=== PATIENT | male | born 1960 | race Caucasian/White ===

== ENCOUNTER → 2021-12-09 | Outpatient (CLI) | payer BC, SELFPAY ==
--- NOTE | 2021-12-09 15:34 | NEURO ---
NCS and/or EMG Patient Report Ordering Doctor: Anjana Queen DATE OF SERVICE: 12/09/21 Indication: Right hand numbness, pain and weakness. Evaluate for entrapment neuropathy. Findings: Nerve conduction studies were performed in the right upper extremity. The right median motor study recording the abductor pollicis brevis showed a normal amplitude, prolonged distal latency and borderline conduction velocity. The right ulnar motor study recording the abductor digiti minimi showed a normal amplitude, normal distal latency and normal conduction velocity. Borderline slowing was present across the elbow. The right ulnar motor study recording the first dorsal interosseous showed a normal amplitude, normal distal latency and normal conduction velocity. Significant focal slowing was present across the elbow. The right median sensory response recording digit two showed a reduced amplitude, prolonged latency and slowed conduction velocity. The right ulnar sensory response recording digit five showed a reduced amplitude, normal latency and normal conduction velocity. The right radial sensory response recording over the extensor snuff box showed a normal amplitude, latency and conduction velocity. Needle EMG of the right upper extremity and cervical paraspinal muscles was performed. No denervation was seen in any muscle. The triceps, first dorsal interosseous and abductor pollicis brevis muscles were large amplitude and long duration with polyphasia. All other motor unit morphology, activation and recruitment patterns were normal. This is an abnormal and complex study. 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 The pathophysiology is predominantly demyelinating, however, there appears to be a degree of secondary sensory axon loss. 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 This finding is compatible with the clinical diagnosis of carpal tunnel syndrome. Finally, the reinnervation seen in the triceps muscle is suggestive, but not diagnostic, of a chronic right C7 radiculopathy. James Alicia D.O. [employer] Codes Neurology Neurology Interp Codes: 36850-77 Musc test done w/n test comp (interp) and 95250-93 Nr cndj test 7-8 studies (interp)
== END | disposition home or self-care (01) ==
LOC: PSN 14:24
PROVIDERS: PCP Family Medicine
DX: G56.01 Carpal tunnel syndrome, right upper limb (principal); R53.1 Weakness
CPT/HCPCS: 95886; 95910